=== PATIENT | male | born 1975 | race Two or more races ===

== ENCOUNTER 2021-11-16 08:22 | Emergency (ER) | payer MEDICAID, OTHER ==
[~2021-11-16] VITALS: Ht 182.9 cm; Wt 104.3 kg
[2021-11-16 09:08] VITALS: BP 129/82
[2021-11-16] MEDS ORDERED: DexAMETHasone SOD PHOS 10MG/1ML VIAL INJ IV ONE (09:30)
[2021-11-16] MEDS ORDERED: KETOROLAC TROMETH 60MG/2ML VIAL IM ONE (09:30)
[2021-11-16] MEDS ORDERED: cefTRIAXone SOD 1,000 MG VL IM ONE (09:30)
[2021-11-16] MEDS ORDERED: BENZ100C97 PO (09:36)
[2021-11-16] MEDS ORDERED: AMOX-277 PO (09:36)
[2021-11-16] MEDS ORDERED: PRED10TA PO (09:36)
[2021-11-16] MEDS ORDERED: PROMETHAZINE HCL 6.25 MG/5 ML ORAL SYRUP PO ONE (09:45)
[2021-11-16] MEDS ORDERED: DexAMETHasone SOD PHOS 10MG/1ML VIAL INJ IM ONE (10:15)
[2021-11-16] MEDS ORDERED: PROMETHAZINE HCL 25 MG/ML 1ML IM ONE (10:15)
== END 2021-11-16 12:10 | disposition home or self-care (01) ==
LOC: ER 08:27
DX: J02.9 Acute pharyngitis, unspecified (principal); J06.9 Acute upper respiratory infection, unspecified; G44.209 Tension-type headache, unspecified, not intractable; I10 Essential (primary) hypertension; E11.9 Type 2 diabetes mellitus without complications; G89.29 Other chronic pain; M54.9 Dorsalgia, unspecified; G43.909 Migraine, unspecified, not intractable, without status migrainosus; Z20.822 Contact with and (suspected) exposure to COVID-19
CPT/HCPCS: 36415; 70450; 71045; 87426; 93005; 96372; 99285; J0696; J1100; J1885; J2550

== ENCOUNTER 2021-12-31 09:41 | Emergency (ER) | payer MEDICAID ==
[~2021-12-31] VITALS: Ht 182.9 cm; Wt 88.5 kg
[~2021-12-31 09:41] MED LIST: AMOX-277 PO; BENZ100C97 PO; PRED10TA PO
[2021-12-31 09:50] VITALS: BP 106/68
[2021-12-31] MEDS ORDERED: cefTRIAXone SOD 1,000 MG VL ONE (10:34)
[2021-12-31] MEDS ORDERED: LIDOCAINE 2% (LOCAL ANESTH.) PF 5ml SDV ONE (10:34)
[2021-12-31] MEDS ORDERED: PROM1SOL4 PO (10:35)
[2021-12-31] MEDS ORDERED: AZIT500T66 PO (10:35)
[2021-12-31] MEDS ORDERED: cefTRIAXone W LIDOCAINE 1 GM IM IM ONE (10:45)
== END 2021-12-31 10:51 | disposition home or self-care (01) ==
LOC: ER 09:41
DX: J03.90 Acute tonsillitis, unspecified (principal); J06.9 Acute upper respiratory infection, unspecified; I10 Essential (primary) hypertension; E11.9 Type 2 diabetes mellitus without complications; Z79.2 Long term (current) use of antibiotics; Z79.899 Other long term (current) drug therapy
CPT/HCPCS: 96372; 99283; J0696; J2001